=== PATIENT | female | born 1965 | race African-American/Black ===

== ENCOUNTER 2016-12-06 17:47 | Inpatient (IN) | payer MEDICAID ==
[~2016-12-06] VITALS: Ht 160 cm; Wt 72.6 kg
[2016-12-06] MEDS ORDERED: SODIUM CHLORIDE 0.9% 1,000 ML IV ONE (18:35)
[2016-12-06] MEDS ORDERED: ONDANSETRON HCL 4MG/2ML VIAL IV STA (18:35)
[2016-12-06] MEDS ORDERED: FAMOTIDINE 20MG/2ML VIAL IV ONE (19:00)
[2016-12-06 19:48] LABS: BASOPHILS % 0.8 % (0.0-2.0); EOSINOPHILS % 0.2 % (0.0-5.0); HEMATOCRIT. 27.7 % (36.0-48.0); HEMOGLOBIN. 9.1 g/dL (12.0-16.0); LYMPHOCYTES % 8.3 % (20.0-50.0); MEAN CORPUSCULAR HEMOGLOBIN 27.8 pg (28.0-32.0); MEAN CORPUSCULAR HGB CONC 32.8 g/dL (31.0-37.0); MEAN CORPUSCULAR VOLUME 84.7 fL (81.0-99.0); MEAN PLATELET VOLUME 7.7 fl (7.4-10.4); MONOCYTES % 2.4 % (2.0-8.0); NEUTROPHILS % 88.3 % (40.0-76.0); PLATELET 467 x1000/uL (130-400); RED BLOOD CELL COUNT 3.28 mill/uL (4.2-5.4); RED CELL DISTRIBUTION WIDTH 16.3 % (11.6-14.6); WHITE BLOOD COUNT 18.2 x1000/uL (4.5-11.0)
[2016-12-06 19:50] LABS: CHLORIDE 108 mEq/L (98-107); INDEX HEMOLYSI 1 (1-3); INDEX ICTERIC 1 (1-4); INDEX LIPEMIC 1 (1-3)
[2016-12-06 19:52] LABS: PROTHROMBIN TIME 10.4 sec
[2016-12-06 19:54] LABS: ALBUMIN 2.2 g/dL (3.4-5.0); ANION GAP 14; CALCIUM 8.9 mg/dL (8.5-10.1); CARBON DIOXIDE 29 mEq/L (21-32); ETHANOL BLOOD < 10 mg/dL; LIPASE 76 IU/L (73-393); UREA NITROGEN BLOOD 36 mg/dL (7-21)
[2016-12-06 19:56] LABS: AMMONIA 12 uMol/L (<32)
[2016-12-06 19:58] LABS: ALANINE AMINOTRANSFERASE 17 IU/L (13-61); eGFR 30 mL/min (>60)
[2016-12-06] MEDS ORDERED: MORPHINE SULFATE 4 MG/ML CPJ (NOT FOR IM USE) IV PRN (20:00)
[2016-12-06] MEDS: ACETAMINOPHEN 325MG TABLET PO PRN (21:00)
[2016-12-06 23:05] VITALS: BP 197/94
[2016-12-06] MEDS ORDERED: ONDANSETRON HCL 4MG/2ML VIAL IV PRN (23:45)
[2016-12-06] MEDS ORDERED: NA PHOS,M-B/NA PHOS,DI-BA ENEMA 118ML PR PRN (23:45)
[2016-12-06] MEDS ORDERED: GUAIFENESIN 200MG/10ML SUGAR FREE UDC PO PRN (23:45)
[2016-12-06] MEDS ORDERED: DIPHENHYDRAMINE 50MG/ML VIAL IV PRN (23:45)
[2016-12-06] MEDS ORDERED: ENALAPRIL 0.625 MG in DEXTROSE 5% WATER 49.5 ML IV PRN (23:45)
[2016-12-06] MEDS ORDERED: ACETAMINOPHEN 650MG/20.3ML UDC GT PRN (23:45)
[2016-12-06] MEDS ORDERED: ACETAMINOPHEN 650MG SUPP PR PRN (23:45)
[2016-12-06] MEDS ORDERED: IPRATROPIUM/ALBUTEROL 0.5-3(2.5)MG/3ML NEB INH PRN (23:45)
[2016-12-06] MEDS ORDERED: MAGNESIUM/ALUMINUM HYDROXIDE/SIMETHICONE 30ML UDC PO PRN (23:45)
[2016-12-06] MEDS ORDERED: DOCUSATE SODIUM 100MG CAPSULE PO PRN (23:45)
[2016-12-06] MEDS ORDERED: DEXTROSE 50% WATER 50ML SYRINGE IV PRN (23:45)
[2016-12-07] VITALS (25 sets, daily range): BP systolic 111–197; BP diastolic 50–93
[2016-12-07] MEDS: SODIUM CHLORIDE 0.9% 1,000 ML IV SCH ×2 (00:50→12:22)
[2016-12-07] MEDS: ENALAPRIL 1.25MG/ML VIAL 1ML IV PRN ×2 (01:00→06:48)
[2016-12-07] MEDS: PANTOPRAZOLE 80 MG in SODIUM CHLORIDE 0.9% 100 ML IV SCH ×2 (01:15→10:02)
[2016-12-07] MEDS ORDERED: FURO40TA5 PO (01:29)
[2016-12-07] MEDS ORDERED: LISI-186 PO (01:29)
[2016-12-07] MEDS ORDERED: HYDR-523 PO (01:29)
[2016-12-07] MEDS ORDERED: METO-293 PO (01:29)
[2016-12-07] MEDS: CLONIDINE 0.1MG TABLET PO PRN ×2 (02:01→09:56)
[2016-12-07] MEDS: INSULIN LISPRO 100 UNITS/ML SUBCUT SCH ×4 (06:00→20:56)
[2016-12-07] MEDS: SODIUM CHLORIDE 0.9% INJ 3ML FLUSH IVF SCH ×3 (06:01→21:03)
[2016-12-07] MEDS: BLOOD SUGAR DIAGNOSTIC STRIP TEST SCH ×4 (06:02→20:36)
[2016-12-07 06:49] LABS: BASOPHILS % 0.4 % (0.0-2.0); EOSINOPHILS % 0.2 % (0.0-5.0); HEMATOCRIT. 23.3 % (36.0-48.0); HEMOGLOBIN. 7.6 g/dL (12.0-16.0); LYMPHOCYTES % 11.6 % (20.0-50.0); MEAN CORPUSCULAR HEMOGLOBIN 27.7 pg (28.0-32.0); MEAN CORPUSCULAR HGB CONC 32.8 g/dL (31.0-37.0); MEAN CORPUSCULAR VOLUME 84.7 fL (81.0-99.0); MEAN PLATELET VOLUME 7.5 fl (7.4-10.4); MONOCYTES % 7.5 % (2.0-8.0); NEUTROPHILS % 80.3 % (40.0-76.0); PLATELET 362 x1000/uL (130-400); RED BLOOD CELL COUNT 2.75 mill/uL (4.2-5.4); RED CELL DISTRIBUTION WIDTH 15.9 % (11.6-14.6); WHITE BLOOD COUNT 14.9 x1000/uL (4.5-11.0)
[2016-12-07] MEDS ORDERED: BLOOD SUGAR DIAGNOSTIC STRIP TEST SCH (07:30)
[2016-12-07 08:00] LABS: INDEX HEMOLYSI 1 (1-3); INDEX ICTERIC 1 (1-4); INDEX LIPEMIC 1 (1-3)
[2016-12-07] MEDS ORDERED: INSULIN LISPRO 100 UNITS/ML SUBCUT SCH (08:00)
[2016-12-07 08:02] LABS: CHLORIDE 113 mEq/L (98-107)
[2016-12-07 08:09] LABS: ALANINE AMINOTRANSFERASE 12 IU/L (13-61); ALBUMIN 1.8 g/dL (3.4-5.0); ANION GAP 10; CALCIUM 8.4 mg/dL (8.5-10.1); CARBON DIOXIDE 30 mEq/L (21-32); UREA NITROGEN BLOOD 33 mg/dL (7-21); eGFR 29 mL/min (>60)
[2016-12-07] MEDS ORDERED: AMLODIPINE 10MG TABLET PO ONE (08:45)
[2016-12-07] MEDS: AMLODIPINE 10MG TABLET PO SCH (09:10)
[2016-12-07] MEDS: HYDRALAZINE HCL 50MG TABLET PO SCH ×3 (09:10→21:01)
[2016-12-07] MEDS ORDERED: SIMETHICONE 40 MG/0.6 ML 30ML ONE ×2 (14:05→16:01)
[2016-12-07] MEDS ORDERED: SODIUM CHLORIDE 0.9% 10ML VIAL ONE (14:05)
[2016-12-07] MEDS ORDERED: MIDAZOLAM HCL 5 MG/5 ML VIAL ONE (16:02)
[2016-12-07] MEDS ORDERED: FENTANYL CITRATE/PF 50MCG/ML 2ML VIAL IV PRN (16:02)
[2016-12-07] MEDS ORDERED: FENTANYL CITRATE/PF 50MCG/ML 2ML VIAL ONE (16:02)
[2016-12-07] MEDS ORDERED: MIDAZOLAM HCL 5 MG/5 ML VIAL IV PRN (16:02)
[2016-12-07] MEDS: DEXTROSE 5% WATER 1,000 ML IV SCH (17:00)
[2016-12-07] MEDS ORDERED: PROT40 PO (17:12)
[2016-12-07] MEDS: SUCRALFATE 1 G/10 ML UDC PO SCH ×2 (17:28→20:35)
[2016-12-07 17:52] LABS: CLARITY URINE CLEAR (CLEAR); COLOR URINE YELLOW (YELLOW); GLUCOSE URINE 1+ (NEGATIVE); KETONES URINE NEGATIVE (NEGATIVE); LEUKOCYTE ESTERASE URINE NEGATIVE (NEGATIVE); NITRITE URINE NEGATIVE (NEGATIVE); OCCULT BLOOD URINE NEGATIVE (NEGATIVE); PROTEIN URINE 4+ (NEGATIVE); SPECIFIC GRAVITY URINE 1.018 (1.005-1.030); UROBILINOGEN URINE 0.2 E.U./dL (0.2-1.0)
[2016-12-07 18:05] LABS: *AMPHETAMINES SCREEN URINE NEGATIVE (NEGATIVE); *BARBITURATES SCREEN URINE NEGATIVE (NEGATIVE); *BENZODIAZEPINES SCREEN URINE NEGATIVE (NEGATIVE); *COCAINE SCREEN URINE NEGATIVE (NEGATIVE); CANNABINOID URINE SCREEN NEGATIVE (NEGATIVE); ECSTASY MDMA SCREEN URINE NEGATIVE (NEGATIVE); METHADONE URINE SCREEN NEGATIVE (NEGATIVE); OPIATES URINE SCREEN PRESUMTIVE POSITIVE (NEGATIVE); PHENCYCLIDINE URINE SCREEN NEGATIVE (NEGATIVE)
[2016-12-07 18:35] LABS: BACTERIA URINE 1+; RBC URINE 0-2 /hpf (0-2); SQUAMOUS EPITHELIAL CELL URINE 1+ /lpf (RARE/1+)
[2016-12-07] MEDS: OMEPRAZOLE 20MG CAPSULE EXTENDED RELEASE PO SCH (20:35)
[2016-12-07] MEDS: ACETAMINOPHEN 325MG TABLET PO PRN (21:00)
[2016-12-07 21:57] LABS: HEMATOCRIT 30.6 % (36.0-48.0); HEMOGLOBIN 10.2 g/dL (12.0-16.0)
[2016-12-08] VITALS (18 sets, daily range): BP systolic 89–153; BP diastolic 41–77
[2016-12-08] MEDS: SODIUM CHLORIDE 0.9% INJ 3ML FLUSH IVF SCH ×3 (06:04→21:11)
[2016-12-08] MEDS: HYDRALAZINE HCL 50MG TABLET PO SCH ×3 (06:12→21:11)
[2016-12-08] MEDS: HYDROCODONE/ACETAMINOPHEN 5/325MG TABLET PO PRN ×2 (06:12→19:35)
[2016-12-08] MEDS: SUCRALFATE 1 G/10 ML UDC PO SCH ×4 (06:41→21:09)
[2016-12-08] MEDS: OMEPRAZOLE 20MG CAPSULE EXTENDED RELEASE PO SCH ×2 (06:42→21:09)
[2016-12-08] MEDS: BLOOD SUGAR DIAGNOSTIC STRIP TEST SCH ×4 (07:30→21:10)
[2016-12-08] MEDS: INSULIN LISPRO 100 UNITS/ML SUBCUT SCH ×4 (08:00→21:10)
[2016-12-08] MEDS: AMLODIPINE 10MG TABLET PO SCH (08:59)
[2016-12-08 09:26] LABS: BASOPHILS % 0.6 % (0.0-2.0); EOSINOPHILS % 3.6 % (0.0-5.0); HEMATOCRIT. 29.4 % (36.0-48.0); HEMOGLOBIN. 9.6 g/dL (12.0-16.0); LYMPHOCYTES % 11.5 % (20.0-50.0); MEAN CORPUSCULAR HEMOGLOBIN 28.7 pg (28.0-32.0); MEAN CORPUSCULAR HGB CONC 32.7 g/dL (31.0-37.0); MEAN CORPUSCULAR VOLUME 87.9 fL (81.0-99.0); MEAN PLATELET VOLUME 7.8 fl (7.4-10.4); MONOCYTES % 10.1 % (2.0-8.0); NEUTROPHILS % 74.2 % (40.0-76.0); PLATELET 296 x1000/uL (130-400); RED BLOOD CELL COUNT 3.34 mill/uL (4.2-5.4); RED CELL DISTRIBUTION WIDTH 16.1 % (11.6-14.6); WHITE BLOOD COUNT 14.2 x1000/uL (4.5-11.0)
[2016-12-08 09:58] LABS: ALANINE AMINOTRANSFERASE 11 IU/L (13-61); ALBUMIN 1.7 g/dL (3.4-5.0); ANION GAP 13; CALCIUM 7.6 mg/dL (8.5-10.1); CARBON DIOXIDE 26 mEq/L (21-32); CHLORIDE 106 mEq/L (98-107); INDEX HEMOLYSI 1 (1-3); INDEX ICTERIC 1 (1-4); INDEX LIPEMIC 1 (1-3); UREA NITROGEN BLOOD 33 mg/dL (7-21); eGFR 20 mL/min (>60)
[2016-12-08] MEDS: METOCLOPRAMIDE HCL 10MG/2ML VIAL IV SCH ×2 (13:14→18:00)
[2016-12-08 16:03] LABS: HEMATOCRIT 31.4 % (36.0-48.0); HEMOGLOBIN 10.4 g/dL (12.0-16.0); MEAN CORPUSCULAR HEMOGLOBIN 29.6 pg (28.0-32.0); MEAN CORPUSCULAR HGB CONC 33.2 g/dL (31.0-37.0); MEAN CORPUSCULAR VOLUME 89.1 fL (81.0-99.0); RED BLOOD CELL COUNT 3.53 mill/uL (4.2-5.4); RED CELL DISTRIBUTION WIDTH 16.2 % (11.6-14.6); WHITE BLOOD COUNT 14.9 x1000/uL (4.5-11.0)
[2016-12-08 16:10] LABS: CALCIUM 7.6 mg/dL (8.5-10.1)
[2016-12-08 16:51] LABS: PLATELET 235 x1000/uL (130-400)
[2016-12-09] VITALS (10 sets, daily range): BP systolic 105–166; BP diastolic 44–93
[2016-12-09] MEDS: METOCLOPRAMIDE HCL 10MG/2ML VIAL IV SCH ×4 (00:25→18:40)
[2016-12-09] MEDS: DEXTROSE 5% WATER 1,000 ML IV SCH ×2 (03:22→12:27)
[2016-12-09] MEDS: SUCRALFATE 1 G/10 ML UDC PO SCH ×4 (06:35→22:05)
[2016-12-09] MEDS: OMEPRAZOLE 20MG CAPSULE EXTENDED RELEASE PO SCH ×2 (06:35→22:04)
[2016-12-09] MEDS: SODIUM CHLORIDE 0.9% INJ 3ML FLUSH IVF SCH ×2 (06:35→13:14)
[2016-12-09] MEDS: HYDRALAZINE HCL 50MG TABLET PO SCH ×3 (06:35→22:05)
[2016-12-09] MEDS: BLOOD SUGAR DIAGNOSTIC STRIP TEST SCH ×4 (07:47→22:37)
[2016-12-09] MEDS: INSULIN LISPRO 100 UNITS/ML SUBCUT SCH ×4 (07:47→22:37)
[2016-12-09] MEDS: AMLODIPINE 10MG TABLET PO SCH (08:19)
[2016-12-09 09:18] LABS: BASOPHILS % 0.5 % (0.0-2.0); EOSINOPHILS % 3.7 % (0.0-5.0); HEMATOCRIT. 30.6 % (36.0-48.0); HEMOGLOBIN. 10.1 g/dL (12.0-16.0); LYMPHOCYTES % 15.6 % (20.0-50.0); MEAN CORPUSCULAR HEMOGLOBIN 28.7 pg (28.0-32.0); MEAN CORPUSCULAR HGB CONC 32.9 g/dL (31.0-37.0); MEAN CORPUSCULAR VOLUME 87.2 fL (81.0-99.0); MEAN PLATELET VOLUME 7.5 fl (7.4-10.4); MONOCYTES % 10.1 % (2.0-8.0); NEUTROPHILS % 70.1 % (40.0-76.0); PLATELET 307 x1000/uL (130-400); RED BLOOD CELL COUNT 3.51 mill/uL (4.2-5.4); RED CELL DISTRIBUTION WIDTH 16.1 % (11.6-14.6); WHITE BLOOD COUNT 12.3 x1000/uL (4.5-11.0)
[2016-12-09 09:42] LABS: CALCIUM 7.9 mg/dL (8.5-10.1)
[2016-12-09] MEDS: HYDROCODONE/ACETAMINOPHEN 5/325MG TABLET PO PRN (14:15)
[2016-12-09] MEDS ORDERED: SODIUM CHLORIDE 0.9% 1,000 ML IV SCH (14:30)
[2016-12-09 16:04] LABS: CLARITY URINE CLEAR (CLEAR); COLOR URINE YELLOW (YELLOW); GLUCOSE URINE 1+ (NEGATIVE); KETONES URINE NEGATIVE (NEGATIVE); LEUKOCYTE ESTERASE URINE TRACE (NEGATIVE); NITRITE URINE NEGATIVE (NEGATIVE); OCCULT BLOOD URINE NEGATIVE (NEGATIVE); PH URINE 6.5 (4.5-8.0); PROTEIN URINE 4+ (NEGATIVE); UROBILINOGEN URINE 0.2 E.U./dL (0.2-1.0)
[2016-12-09 16:41] LABS: BACTERIA URINE 2+; RBC URINE 0-2 /hpf (0-2); SQUAMOUS EPITHELIAL CELL URINE FEW /lpf (RARE/1+)
[2016-12-09 16:42] LABS: COARSE GRANULAR CASTS URINE 0-5 /lpf
[2016-12-10] MEDS ORDERED: SODIUM CHLORIDE 0.9% 1,000 ML IV SCH (00:30)
[2016-12-10] MEDS: METOCLOPRAMIDE HCL 10MG/2ML VIAL IV SCH ×4 (01:29→19:00)
[2016-12-10] MEDS: ZOLPIDEM TARTRATE 5MG TABLET PO PRN ×2 (01:46→21:31)
[2016-12-10] MEDS: SODIUM CHLORIDE 0.9% INJ 3ML FLUSH IVF SCH ×3 (01:47→21:40)
[2016-12-10 04:30] VITALS: BP 128/65
[2016-12-10] MEDS ORDERED: HYDR-4135 PO (07:37)
[2016-12-10] MEDS ORDERED: AMLO10TA80 PO (07:37)
[2016-12-10] MEDS ORDERED: SUCR1ORA2 PO (07:37)
[2016-12-10 07:47] LABS: BASOPHILS % 0.7 % (0.0-2.0); EOSINOPHILS % 4.1 % (0.0-5.0); HEMATOCRIT. 29.7 % (36.0-48.0); LYMPHOCYTES % 13.3 % (20.0-50.0); MEAN CORPUSCULAR HEMOGLOBIN 29.5 pg (28.0-32.0); MEAN CORPUSCULAR HGB CONC 33.7 g/dL (31.0-37.0); MEAN CORPUSCULAR VOLUME 87.6 fL (81.0-99.0); MEAN PLATELET VOLUME 7.6 fl (7.4-10.4); MONOCYTES % 10.6 % (2.0-8.0); NEUTROPHILS % 71.3 % (40.0-76.0); PLATELET 279 x1000/uL (130-400); RED BLOOD CELL COUNT 3.38 mill/uL (4.2-5.4); RED CELL DISTRIBUTION WIDTH 15.8 % (11.6-14.6); WHITE BLOOD COUNT 8.6 x1000/uL (4.5-11.0)
[2016-12-10] MEDS: INSULIN LISPRO 100 UNITS/ML SUBCUT SCH ×4 (07:50→21:00)
[2016-12-10] MEDS: SUCRALFATE 1 G/10 ML UDC PO SCH ×4 (07:58→21:31)
[2016-12-10] MEDS: OMEPRAZOLE 20MG CAPSULE EXTENDED RELEASE PO SCH ×2 (07:58→21:31)
[2016-12-10] MEDS: HYDRALAZINE HCL 50MG TABLET PO SCH ×3 (07:59→21:31)
[2016-12-10 08:00] VITALS: BP 160/85
[2016-12-10 08:00] LABS: ALANINE AMINOTRANSFERASE 14 IU/L (13-61); ALBUMIN 1.7 g/dL (3.4-5.0); ANION GAP 16; CALCIUM 7.8 mg/dL (8.5-10.1); CARBON DIOXIDE 24 mEq/L (21-32); CHLORIDE 100 mEq/L (98-107); INDEX HEMOLYSI 1 (1-3); INDEX ICTERIC 1 (1-4); INDEX LIPEMIC 1 (1-3); MAGNESIUM 2.2 mg/dL (1.8-2.4); PHOSPHORUS 4.1 mg/dL (2.5-4.9); UREA NITROGEN BLOOD 39 mg/dL (7-21); eGFR 14 mL/min (>60)
[2016-12-10] MEDS: BLOOD SUGAR DIAGNOSTIC STRIP TEST SCH ×4 (08:08→21:39)
[2016-12-10] MEDS: AMLODIPINE 10MG TABLET PO SCH (08:55)
[2016-12-10 12:00] VITALS: BP 143/75
[2016-12-10 13:53] LABS: HEPATITIS B SURFACE AB 4.6 mIU/mL
[2016-12-10 14:04] LABS: HEPATITIS B SURFACE ANTIGEN NEGATIVE
[2016-12-10] MEDS ORDERED: DEXTROSE 5% IV PRN (14:30)
[2016-12-10] MEDS ORDERED: WATER IV PRN (14:30)
[2016-12-10] MEDS ORDERED: ENALAPRIL IV PRN (14:30)
[2016-12-10 14:32] LABS: HEPATITIS C VIR.AB < 0.02 INDEXVAL (0.00-0.80)
[2016-12-10] MEDS: HYDROCODONE/ACETAMINOPHEN 5/325MG TABLET PO PRN ×2 (14:59→19:10)
[2016-12-10 16:00] VITALS: BP 137/71
[2016-12-10 20:00] VITALS: BP 146/79
[2016-12-11] VITALS: BP 126/59
[2016-12-11] MEDS: METOCLOPRAMIDE HCL 10MG/2ML VIAL IV SCH ×3 (00:47→11:07)
[2016-12-11] MEDS: ACETAMINOPHEN 325MG TABLET PO PRN (03:17)
[2016-12-11 04:00] VITALS: BP 151/78
[2016-12-11 06:34] LABS: BASOPHILS % 0.4 % (0.0-2.0); EOSINOPHILS % 3.7 % (0.0-5.0); HEMATOCRIT. 31.5 % (36.0-48.0); HEMOGLOBIN. 10.6 g/dL (12.0-16.0); LYMPHOCYTES % 12.2 % (20.0-50.0); MEAN CORPUSCULAR HEMOGLOBIN 29.3 pg (28.0-32.0); MEAN CORPUSCULAR HGB CONC 33.6 g/dL (31.0-37.0); MEAN CORPUSCULAR VOLUME 87.3 fL (81.0-99.0); MEAN PLATELET VOLUME 7.7 fl (7.4-10.4); NEUTROPHILS % 73.7 % (40.0-76.0); PLATELET 336 x1000/uL (130-400); RED BLOOD CELL COUNT 3.61 mill/uL (4.2-5.4); RED CELL DISTRIBUTION WIDTH 15.7 % (11.6-14.6); WHITE BLOOD COUNT 10.2 x1000/uL (4.5-11.0)
[2016-12-11] MEDS: OMEPRAZOLE 20MG CAPSULE EXTENDED RELEASE PO SCH (06:34)
[2016-12-11] MEDS: SUCRALFATE 1 G/10 ML UDC PO SCH ×2 (06:34→11:25)
[2016-12-11] MEDS: HYDRALAZINE HCL 50MG TABLET PO SCH (06:34)
[2016-12-11] MEDS: SODIUM CHLORIDE 0.9% INJ 3ML FLUSH IVF SCH (06:35)
[2016-12-11] MEDS: BLOOD SUGAR DIAGNOSTIC STRIP TEST SCH ×2 (06:41→12:44)
[2016-12-11 07:04] LABS: CALCIUM 8.4 mg/dL (8.5-10.1); MAGNESIUM 2.3 mg/dL (1.8-2.4); PHOSPHORUS 4.3 mg/dL (2.5-4.9)
[2016-12-11] MEDS ORDERED: ATOR10TA PO (07:45)
[2016-12-11] MEDS ORDERED: LEVO250T2 PO ×2 (07:48)
[2016-12-11] MEDS: INSULIN LISPRO 100 UNITS/ML SUBCUT SCH ×2 (07:50→13:07)
[2016-12-11] MEDS: AMLODIPINE 10MG TABLET PO SCH (08:47)
[2016-12-11] MEDS ORDERED: LEVOFLOXACIN 250MG TABLET PO SCH (11:00)
[2016-12-11 12:00] VITALS: BP 150/83
[2016-12-11 14:27] VITALS: BP 150/83
[2016-12-11 17:13] LABS: ANTI-DNA DOUBLE STRANDED QUANT < 1 IU/mL (0-9)
[2016-12-12 15:06] LABS: ANA IFA Negative (.)
== END 2016-12-11 14:43 | disposition home or self-care (01) | DRG 243 ==
LOC: ER 18:28 → 5EST 21:42 → 6EST 12-09 17:12
PROVIDERS: ADMIT Family Medicine; ATTEND Family Medicine
PROC: 0DB68ZX Excision of Stomach, Via Natural or Artificial Opening Endoscopic, Diagnostic (ICD-10-PCS; 2016-12-07)
PROC: 30233N1 Transfusion of Nonautologous Red Blood Cells into Peripheral Vein, Percutaneous Approach (ICD-10-PCS; 2016-12-07)
PROC: 0DB58ZX Excision of Esophagus, Via Natural or Artificial Opening Endoscopic, Diagnostic (ICD-10-PCS; principal; 2016-12-07 15:30)
DX: K21.0 Gastro-esophageal reflux disease with esophagitis (principal); E43 Unspecified severe protein-calorie malnutrition; N17.9 Acute kidney failure, unspecified; E87.0 Hyperosmolality and hypernatremia; K22.11 Ulcer of esophagus with bleeding; I50.32 Chronic diastolic (congestive) heart failure; D62 Acute posthemorrhagic anemia; I13.0 Hypertensive heart and chronic kidney disease with heart failure and stage 1 through stage 4 chronic kidney disease, or unspecified chronic kidney disease; I42.9 Cardiomyopathy, unspecified; E10.21 Type 1 diabetes mellitus with diabetic nephropathy; R33.9 Retention of urine, unspecified; E87.1 Hypo-osmolality and hyponatremia; E10.22 Type 1 diabetes mellitus with diabetic chronic kidney disease; K29.70 Gastritis, unspecified, without bleeding; N18.9 Chronic kidney disease, unspecified; D72.829 Elevated white blood cell count, unspecified; E78.5 Hyperlipidemia, unspecified; N04.9 Nephrotic syndrome with unspecified morphologic changes; D63.8 Anemia in other chronic diseases classified elsewhere; Z83.3 Family history of diabetes mellitus; Z68.28 Body mass index [BMI] 28.0-28.9, adult
CPT/HCPCS: 36415; 43753; 71010; 76770; 80048; 80053; 80061; 80305; 81001; 82140; 82570; 82962; 83036; 83605; 83690; 83735; 83880; 83935; 84100; 84156; 84300; 85014; 85018; 85025; 85027; 85610; 86225; 86256; 86706; 86803; 86850; 86900; 86920; 87040; 87186; 87340; 88305; 88312; 88313; 93306; 94664; 96361; 96374; 96375; 99291; A4216; C1893; C9113; G0482; J1200; J1815; J2250; J2270; J2405; J2765; J3010; J3490; J7030; J7050; J7060; J7070; J7620; P9016

== ENCOUNTER 2020-01-03 10:42 | Inpatient (IN) | payer MEDICAID ==
[~2020-01-03] VITALS: Ht 160 cm; Wt 81.7 kg
[~2020-01-03 10:42] MED LIST: AMLO10TA80 PO; ATOR10TA PO; HYDR-4135 PO; HYDR-523 PO; LEVO250T2 PO; METO-293 PO; PROT40 PO; SUCR1ORA2 PO
[2020-01-03 12:44] LABS: HEMATOCRIT. 29.1 % (36.0-48.0); HEMOGLOBIN. 9.6 g/dL (12.0-16.0); MEAN CORPUSCULAR HEMOGLOBIN 29.2 pg (28.0-32.0); MEAN PLATELET VOLUME 8.3 fl (7.4-10.4); PLATELET 269 x1000/uL (130-400); RED BLOOD CELL COUNT 3.27 mill/uL (4.2-5.4); RED CELL DISTRIBUTION WIDTH 17.1 % (11.6-14.6)
[2020-01-03 12:46] LABS: CHLORIDE 92 mEq/L (98-107)
[2020-01-03 12:50] LABS: INR 1.1
[2020-01-03] MEDS ORDERED: SODIUM BICARBONATE 8.4% 1 MEQ/ML 50ML SYR IV ONE (13:15)
[2020-01-03] MEDS ORDERED: DEXTROSE 50% WATER 50ML SYRINGE IV ONE (13:15)
[2020-01-03] MEDS ORDERED: INSULIN REGULAR (HUMULIN R) 300UNITS/3ML IV ONE (13:15)
[2020-01-03] MEDS ORDERED: CALCIUM GLUCONATE 1,000 MG in DEXT 5% WATER 100 ML IV ONE (13:15)
[2020-01-03 13:18] LABS: PLATELET ESTIMATE NORMAL
[2020-01-03] MEDS ORDERED: DEXTROSE 10% WATER 500 ML IV ONE (13:45)
[2020-01-03] MEDS ORDERED: HYDROCODONE/ACETAMINOPHEN 5/325MG TABLET PO ONE (16:15)
[2020-01-03] MEDS ORDERED: ONDANSETRON HCL 4MG/2ML INJ IV PRN (18:30)
[2020-01-03] MEDS ORDERED: MAGNESIUM HYDROXIDE 400MG/5ML 30ML UDC PO PRN (18:30)
[2020-01-03] MEDS ORDERED: DIPHENHYDRAMINE 50MG/ML VIAL IV PRN (18:30)
[2020-01-03] MEDS ORDERED: IPRATROPIUM/ALBUTEROL 0.5-3(2.5)MG/3ML NEB HHN PRN (18:30)
[2020-01-03] MEDS ORDERED: CLONIDINE 0.1MG TABLET PO PRN (18:30)
[2020-01-03] MEDS ORDERED: DEXTROSE 50% WATER 50ML SYRINGE IV PRN (18:30)
[2020-01-03] MEDS ORDERED: MAGNESIUM/ALUMINUM HYDROXIDE/SIMETHICONE 30ML UDC PO PRN (18:30)
[2020-01-03] MEDS ORDERED: ACETAMINOPHEN 325MG TABLET PO PRN ×2 (18:30)
[2020-01-03] MEDS: BLOOD SUGAR DIAGNOSTIC STRIP TEST SCH (21:00)
[2020-01-03] MEDS: INSULIN LISPRO 100 UNITS/ML SUBCUT SCH (21:00)
[2020-01-03] MEDS ORDERED: ZOLPIDEM TARTRATE 5MG TABLET PO PRN (21:00)
[2020-01-03 22:01] VITALS: BP 173/79
[2020-01-03] MEDS: PANTOPRAZOLE 40MG DR TABLET PO SCH (22:01)
[2020-01-03] MEDS: HYDROCODONE/ACETAMINOPHEN 5/325MG TABLET PO PRN (22:02)
[2020-01-03] MEDS: SODIUM CHLORIDE 0.9% INJ 3ML FLUSH IVF SCH (22:07)
[2020-01-03 22:27] VITALS: BP 155/83
[2020-01-03] MEDS ORDERED: DEXTROSE 50% WATER 50ML SYRINGE IV NR (23:45)
[2020-01-04] VITALS (14 sets, daily range): BP systolic 130–182; BP diastolic 68–114
[2020-01-04] MEDS ORDERED: INSULIN REGULAR (HUMULIN R) UD 100 UNITS/ML SYR IV NR (00:15)
[2020-01-04] MEDS: HYDROCODONE/ACETAMINOPHEN 5/325MG TABLET PO PRN ×2 (06:30→19:48)
[2020-01-04] MEDS: BLOOD SUGAR DIAGNOSTIC STRIP TEST SCH ×4 (06:40→21:00)
[2020-01-04] MEDS: PANTOPRAZOLE 40MG DR TABLET PO SCH ×2 (06:40→21:26)
[2020-01-04] MEDS: INSULIN LISPRO 100 UNITS/ML SUBCUT SCH ×4 (06:42→21:28)
[2020-01-04] MEDS: SODIUM CHLORIDE 0.9% INJ 3ML FLUSH IVF SCH ×2 (14:00→21:29)
[2020-01-04] MEDS ORDERED: ENOXAPARIN 30MG/0.3ML SYR SUBCUT SCH (18:00)
[2020-01-05] VITALS (8 sets, daily range): BP systolic 124–156; BP diastolic 55–80
[2020-01-05] MEDS: SODIUM CHLORIDE 0.9% INJ 3ML FLUSH IVF SCH (06:24)
[2020-01-05] MEDS: INSULIN LISPRO 100 UNITS/ML SUBCUT SCH ×2 (06:24→11:22)
[2020-01-05] MEDS: PANTOPRAZOLE 40MG DR TABLET PO SCH (06:24)
[2020-01-05] MEDS: BLOOD SUGAR DIAGNOSTIC STRIP TEST SCH ×2 (06:24→11:21)
[2020-01-05 09:53] LABS: HEMATOCRIT. 28.5 % (36.0-48.0); HEMOGLOBIN. 9.5 g/dL (12.0-16.0); MEAN CORPUSCULAR HEMOGLOBIN 29.4 pg (28.0-32.0); MEAN CORPUSCULAR VOLUME 87.9 fL (81.0-99.0); MEAN PLATELET VOLUME 8.6 fl (7.4-10.4); PLATELET 290 x1000/uL (130-400); RED BLOOD CELL COUNT 3.24 mill/uL (4.2-5.4); RED CELL DISTRIBUTION WIDTH 16.4 % (11.6-14.6)
[2020-01-05] MEDS ORDERED: AMLODIPINE 5MG TABLET PO SCH (11:00)
[2020-01-05] MEDS ORDERED: HYDRALAZINE HCL 50MG TABLET PO SCH (14:00)
[2020-01-05 20:01] LABS: PLATELET ESTIMATE NORMAL
== END 2020-01-05 16:55 | disposition home or self-care (01) | DRG 425 ==
LOC: ER 10:42 → 3WST 14:42 → EDBEDREQ 14:46 → ENRESERV 19:49
PROVIDERS: ADMIT Internal Medicine; ATTEND Internal Medicine
PROC: 05PYX3Z Removal of Infusion Device from Upper Vein, External Approach (ICD-10-PCS; 2020-01-03)
PROC: 5A1D70Z Performance of Urinary Filtration, Intermittent, Less than 6 Hours Per Day (ICD-10-PCS; principal; 2020-01-04)
DX: E87.5 Hyperkalemia (principal); I13.2 Hypertensive heart and chronic kidney disease with heart failure and with stage 5 chronic kidney disease, or end stage renal disease; E11.22 Type 2 diabetes mellitus with diabetic chronic kidney disease; E11.40 Type 2 diabetes mellitus with diabetic neuropathy, unspecified; I50.23 Acute on chronic systolic (congestive) heart failure; D64.9 Anemia, unspecified; N18.6 End stage renal disease; Z99.2 Dependence on renal dialysis; Z87.11 Personal history of peptic ulcer disease; Z79.899 Other long term (current) drug therapy
CPT/HCPCS: 36415; 71045; 80048; 80053; 82962; 83036; 84132; 84484; 85025; 93005; 93970; 96365; 99291; J0610; J1650; J1815; J2405; J3490; J7060